=== PATIENT | male | born 1965 | race Caucasian/White ===

== ENCOUNTER 2024-10-06 09:25 | Day surgery (SDC) | payer MEDICAID, SELFPAY ==
--- NOTE | 2024-10-04 11:29 | EKG_ITS ---
[facility] Test Date: 2024-10-04 Pat Name: ERIC FISH Department: Room: - Gender: Male Construction Project Engineer: RT STUDENT : 1965 Requested By: Rashid Watkins Order Number: [id number] Reading MD: Rashid Watkins Measurements Intervals [place] Rate: 77 P: 49 NM: 173 QRS: -14 QRSD: 110 T: 64 QT: 371 QTc: 421 Interpretive Statements SINUS RHYTHM POSSIBLE SEPTAL MYOCARDIAL INFARCTION , PROBABLY OLD No previous ECG available for comparison /[email or web address]/[id number].pdf
[2024-10-04 11:35] VITALS: BMI 37.9
[2024-10-04 11:59] LABS: Collection Type, Urine Clean Catch; Squamous Epithelial Cell,Urine 0 /hpf (0-5)
[2024-10-04 13:32] LABS: Bilirubin,Urine Negative (Negative); Blood,Urine Negative (Negative); Clarity,Urine Clear (Clear/Hazy); Color,Urine Yellow (Lt Yel-Yel); Glucose, Urine Negative (Negative); Ketones,Urine Negative (Negative); Leukocyte Esterase,Urine Negative (Negative); Nitrite,Urine Negative (Negative); PH,Urine 6.5 (5.0-7.0); Protein,Urine Trace (Neg - Trace); RBC,Urine 2 /hpf (0-3); Specific Gravity,Urine 1.016 (1.001-1.035); Urobilinogen,Urine Negative mg/dL (0.0-1.0); WBC,Urine 1 /hpf (0-5)
[2024-10-04 13:40] LABS: Alanine Aminotransferase 35 U/L (10-49); Albumin, Serum 4.9 gm/dL (3.4-4.8); Albumin/Globulin Ratio 1.8 (1.2-2.2); Alkaline Phosphatase 70 U/L (46-116); Anion Gap 9 (7-16); Aspartate Amino Transferase 24 U/L (0-34); BUN/Creatinine Ratio 12 Ratio (12-20); Bilirubin,Total 1.1 mg/dL (0.3-1.2); Blood Urea Nitrogen 13 mg/dL (9-23); Calcium 10.1 mg/dL (8.3-10.6); Calcium (Corrected) 10.1 mg/dL (8.5-10.1); Carbon Dioxide 27.1 mMol/L (20.0-31.0); Chloride 104 mMol/L (98-107); Creatinine (Component) 1.1 mg/dL (0.6-1.3); Estimated Creatinine Clearance 106.8 mL/min (>60); Globulin 2.7 gm/dL (2.3-3.5); Glucose 104 mg/dL (74-106); Osmolality,Calculated 279 (275-295); Potassium 4.8 mMol/L (3.4-5.1); Sodium 140 mMol/L (136-145); Total Protein 7.6 gm/dL (5.7-8.2); eGFR > 60 See Note
[2024-10-04 13:54] LABS: Basophils % (Auto) 0 % (0-2.5); Eosinophils # (Auto) 0.2 Thou/mm3 (0.0-0.5); Eosinophils % (Auto) 3 % (0-10); Hematocrit 52.4 % (41.0-53.0); Hemoglobin 18.1 g/dL (13.5-16.0); Immature Granulocytes % (Auto) 0 % (0-0); Immature Granulocytes Auto 0.02 Thou/mm3 (0.00-0.00); Lymphocytes # (Auto) 2.5 Thou/mm3 (1.0-4.8); Lymphocytes % (Auto) 35 % (10-50); Mean Corpuscular HGB Conc 34.5 g/dl (31.0-37.0); Mean Corpuscular Hemoglobin 31.2 pg (25.0-35.0); Mean Corpuscular Volume 90 fL (80-100); Monocytes # (Auto) 0.5 Thou/mm3 (0.0-0.8); Monocytes % (Auto) 7 % (0-12); Neutrophils # (Auto) 3.9 Thou/mm3 (1.8-7.7); Neutrophils % (Auto) 55 % (37-80); Nucleated Red Blood Cell % 0 /100 WBC (0); Platelet Count 211 Thou/mm3 (140-440); RDW Standard Deviation 40.6 fL (35.1-43.9); White Blood Count 7.1 Thou/mm3 (3.8-10.6)
--- NOTE | 2024-10-05 12:44 | ESHP_ITS ---
RE: ERIC FISH : 1965 DATE OF ADMISSION: 10/06/2024 HISTORY OF PRESENT ILLNESS: The patient is a 59-year-old gentleman who has left scrotal swelling. He went to the emergency room for the mass in the scrotum. PAST SURGICAL HISTORY: None. PAST MEDICAL HISTORY: There is no history of diabetes mellitus. The patient does have a history of hypertension. SOCIAL HISTORY: He has two children. HOME MEDICATIONS: He takes, 1. Tylenol. 2. Lisinopril. 3. The patient had already taken Levaquin for 10 days. ALLERGIES: NONE KNOWN. PHYSICAL EXAMINATION: HEENT: Normal. NECK: Supple. LUNGS: Clear. CARDIOVASCULAR: Heart sounds are normal. ABDOMEN: Soft without any organomegaly. No guarding. No rigidity. EXTREMITIES: Normal. GENITOURINARY: Phallus is normal. Testes are down in scrotum. The patient has left-sided scrotal swelling, which is above the testis, which is about 2 inches in size. The patient has a small right inguinal hernia. IMPRESSION: 1. Left scrotal swelling, possible left spermatocele above the left testis. 2. The patient also has right-sided small inguinal hernia. PLAN: Left spermatocelectomy. Planned procedure, risks, and complications have been discussed with the patient. The patient has understood them and agreed to proceed. DT: 12:00:19 TT: 12:42:00 Ref: [id number] - TID: [id number]
[2024-10-06] VITALS (8 sets, daily range): BP systolic 111–138; BP diastolic 73–104; PULSE 64–82; RESP 12–20; TEMP 36.1–36.8; O2SAT 95–96; BMI 37.7
[2024-10-06] MEDS: RINGERS LACTATED 1000 ML 1,000 ML 20 ML IV (10:06)
--- NOTE | 2024-10-06 10:30 | CHAP ---
Patient expressed gratitude for prayer before their procedure.
--- NOTE | 2024-10-06 12:26 | SUR.PHASEI ---
pt arrived to PACU via gurney awake, alert, able to follow commands, breathing unlabored, dressing to scrotal area clean, dry, and intact with scrotal support in place, report from Manjeet MCDONOUGH, Maverick MCDONOUGH, and Dr Tucker
--- NOTE | 2024-10-06 12:54 | SUR.PHASEI ---
Report to Rhea MCDONOUGH
--- NOTE | 2024-10-06 12:54 | SUR.PHASEI ---
1254: Received report from Hortencia Pettit RN. Pt. AAOx4, vitals stable, breathing unlabored, no complaint of pain or nausea, dressing to scrotum CDI, no active bleed noted, pt. sitting upright sipping on water tolerating well.
--- NOTE | 2024-10-06 13:30 | SUR.PHASEII ---
1330: Pt. AAOx4, vitals stable, breathing unlabored, no complaint of pain or nausea, dressing to scrotum CDI, no active bleed noted, scrotal support underwear in place, pt. tolerated sips of water well, pt. ambulated to wheelchair with steady gait and no assist, no complications. Gave discharge instructions to the pt. and his ride, both verbalized understanding and had no further questions. Pt. left with all personal belongings.
--- NOTE | 2024-10-06 15:50 | ESOP_ITS ---
RE: ERIC FISH : 1965 DATE OF OPERATION: 10/06/2024 PREOPERATIVE DIAGNOSIS: Left scrotal swelling, possible left spermatocele, and possible left hydrocele. PROCEDURE PERFORMED: Left hydrocelectomy, excision and fulguration of a prominent appendix of left testis. ANESTHESIA: General by Dr. Tucker. INDICATION: The patient is a 59-year-old male with left-sided scrotal swelling. It has been hurting him. He has about 2 to 3 inches sized left scrotal swelling. This represents clinically a left spermatocele or left scrotal hydrocele. The patient was now scheduled to have left hydrocelectomy because the patient has been having pain and discomfort. Plan, procedure, risks, and complications have been discussed with the patient. The patient understood them and agreed to proceed. DESCRIPTION OF PROCEDURE: After the patient was brought to the operating table under adequate general anesthesia, given by Dr. Tucker in supine position, parts were prepped and draped in the usual fashion. Left scrotal vertical incision was then made approximately 2 inches long. Skin and subcutaneous tissues were incised. Hemostasis was obtained. The scrotal sac was opened. There was a left-sided scrotal hydrocele. This was dissected from surrounding structures. The hydrocele sac was opened. It was found to contain clear yellow hydrocele fluid approximately 120 mL. There was no communication like a hernia. There was a prominent appendix of the left testis, which was excised and fulgurated. The hydrocele sac was partially excised and everted behind the spermatic cord structures with interrupted sutures of 3-0 chromic catgut. Complete hemostasis was obtained. The testis was put back into the scrotal space and the wound was closed in two layers using 3-0 chromic catgut sutures. Local anesthetic was injected at the site of skin. Sterile dressing was then applied. The patient was then transferred to the recovery room in a satisfactory condition having tolerated the entire procedure well. Sponge count and needle count at the end of the procedure were found to be correct. Estimated blood loss was approximately 3 mL. DT: 12:52:12 TT: 15:49:00 Ref: [id number] - TID: [id number]
== END 2024-10-06 13:30 | disposition home or self-care (01) ==
PROVIDERS: Anesthesiology; PCP Family Medicine; Referring Provider Surgery; Visit Provider Surgery
PROC: (CPT 54840; principal; 2024-10-06 11:15)
DX: N43.3 Hydrocele, unspecified (principal); K40.90 Unilateral inguinal hernia, without obstruction or gangrene, not specified as recurrent; I10 Essential (primary) hypertension; Z01.810 Encounter for preprocedural cardiovascular examination
CPT/HCPCS: 55040; 36415; 80053; 81001; 85025; 93005; A4217; A4649; J1100; J1956; J2704; J2765; J3010; J3490; J7120; A9270